=== PATIENT | female | born 1990 | race Caucasian/White ===

== ENCOUNTER 2019-12-08 22:52 | Emergency (ER) | payer SELFPAY ==
[~2019-12-08] VITALS: Ht 167.6 cm; Wt 69.0 kg
[2019-12-08 23:20] VITALS: BP 118/76
== END 2019-12-09 00:01 | disposition left against medical advice (07) ==
LOC: ER 22:52
DX: O26.892 Other specified pregnancy related conditions, second trimester (principal); R68.89 Other general symptoms and signs; Z3A.22 22 weeks gestation of pregnancy